=== PATIENT | male | born 1960 | race Caucasian/White ===

== ENCOUNTER 2019-01-30 19:15 | Emergency (ER) | payer BC ==
[2019-01-30] MEDS ORDERED: diphenhydrAMINE 50 MG CAP PO STA (19:37)
[2019-01-30] MEDS ORDERED: SODIUM CHLORIDE 0.9% 1,000 ML IV STA ×2 (19:37→21:13)
[2019-01-30] MEDS ORDERED: ONDANSETRON 4 MG/2 ML VIAL IVP STA (19:37)
[2019-01-30] MEDS ORDERED: DEXAMETHASONE SOD PHOSPHATE 10 MG/ML 1 ML VIAL IV STA (19:37)
[2019-01-30] MEDS ORDERED: FAMOTIDINE 20 MG/2 ML VIAL IV STA (19:37)
--- NOTE | 2019-01-30 19:40 | ED ---
Allergic Reaction HPI - General Chief complaint: Allergic Reaction Stated complaint: Bee sting-allergic reaction Time Seen by Provider: 01/30/19 19:28 Source: patient, RN notes reviewed, old records reviewed Mode of arrival: ambulatory Limitations: no limitations - History of Present Illness Initial Comments: This is a 58-year-old male the ER for evaluation. 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 Patient presents today with bee sting that occurred yesterday he did present to emergency department at that time the bee sting with his left ear and significant left ear pain as well as generalized body itching and not feeling well. No shortness of breath. Patient returns today with recurrent symptoms. Patient states he was also given steroids today he was unable to get them, he did get filled diaphoresis not feeling well. Patient denies shortness of breath, denies feeling of tongue swelling mouth swelling or throat closing. MD Complaint: allergic reaction, other (bee sting) -: days(s) (1) Exposure: insect bite (brr) Symptoms: rash, itching, dizziness, other (Left ear pain) Severity: moderate Treatment Prior to Arrival: benadryl, steroids Previous Allergy History: prior ED visit(s) (EL yesterday) - Related Data Allergies Allergy/AdvReac Type Severity Reaction Status Date / Time bee venom protein (honey bee) Allergy Rash/Hives Verified 01/30/19 19:27 erythromycin base Allergy Unknown Verified 01/30/19 19:27 Review of Systems ROS Statement: Those systems with pertinent positive or pertinent negative responses have been documented in the HPI. ROS Other: All systems not noted in ROS Statement are negative. Past Medical History Past Medical History: No Reported History, Hypertension History of Any Multi-Drug Resistant Organisms: None Reported Past Surgical History: Orthopedic Surgery Past Psychological History: No Psychological Hx Reported Smoking Status: Never smoker Past Alcohol Use History: None Reported, Daily Past Drug Use History: None Reported General Exam Limitations: no limitations General appearance: alert, in no apparent distress Head exam: Present: atraumatic, normocephalic, normal inspection Eye exam: Present: normal appearance, EOMI. Absent: scleral icterus, conjunctival injection, periorbital swelling ENT exam: Present: normal exam, mucous membranes moist, other (Left ear is erythematous, warm) Neck exam: Present: normal inspection. Absent: tenderness, meningismus, lymphadenopathy Respiratory exam: Present: normal lung sounds bilaterally. Absent: respiratory distress, wheezes, rales, rhonchi, stridor Cardiovascular Exam: Present: regular rate, normal rhythm, normal heart sounds. Absent: systolic murmur, diastolic murmur, rubs, gallop, clicks GI/Abdominal exam: Present: soft, normal bowel sounds. Absent: distended, tend erness, guarding, rebound, rigid Extremities exam: Present: normal inspection, full ROM, normal capillary refill. Absent: tenderness, pedal edema, joint swelling, calf tenderness Back exam: Present: normal inspection Neurological exam: Present: alert, oriented X3, CN II-XII intact Psychiatric exam: Present: normal affect, normal mood Skin exam: Present: warm, dry, intact, normal color. Absent: rash Course Vital Signs 01/30/19 19:22 Temperature 98.0 F Pulse Rate 89 Respiratory 16 Rate Blood Pressure 169/90 O2 Sat by Pulse 96 Oximetry - Reevaluation(s) Reevaluation #1: 01/30/19 19:39 Medical records reviewed Reevaluation #2: 01/30/19 19:40 symptoms improved Medical Decision Making - Medical Decision Making 8 male the ER for evaluation presented for evaluation regards to left ear erythema and edema. This improved here in the ER. Patient can be discharged home Disposition Clinical Impression: Allergic reaction, Allergic reaction to insect sting Disposition: HOME SELF-CARE Condition: Good Instructions (If sedation given, give patient instructions): Insect Bite or Sting (ED) Is patient prescribed a controlled substance at d/c from ED?: No Referrals: Nonstaff,Physician [Primary Care Provider] - 1-2 days
[2019-01-30] MEDS ORDERED: PANTOPRAZOLE 40 MG/10 ML VIAL IVP STA (21:13)
[2019-01-30] MEDS ORDERED: MORPHINE SULFATE 4 MG/ML SYRINGE IV STA (21:13)
--- NOTE | 2019-01-30 21:16 | ED ---
Medical Decision Making - Lab Data Result diagrams: 01/30/19 22:08 01/30/19 22:08 - Medical Decision Making 58 male upon discharge begins to complain of many nonspecific symptoms, patient complaining of back pain, headache, nausea. Patient not feeling comfortable for discharge, daughter worried about how her dad is acting. Patient will have further testing. (Jamil De Dios) Patient care was signed out to me by Dr. De Dios. Patient had presented with multiple nonspecific complaints, at the time of sign out CT scans have been ordered. Computed tomography scan resulted with no acute findings. Patient was reevaluated and reported he was feeling much better he still had some discomfort in his left ear due to the bee sting but no other complaints. At this time patient is comfortable with plan for discharge home and outpatient follow-up. (Tara Byrd) - Lab Data Lab Results 01/30/19 01/30/19 01/30/19 Range/Units 22:08 22:08 22:08 WBC 18.6 H (3.8-10.6) k/uL RBC 5.07 (4.30-5.90) m/uL Hgb 17.0 (13.0-17.5) gm/dL Hct 50.4 (39.0-53.0) % MCV 99.4 (80.0-100.0) fL MCH 33.6 (25.0-35.0) pg MCHC 33.8 (31.0-37.0) g/dL RDW 14.4 (11.5-15.5) % Plt Count 192 (150-450) k/uL Neutrophils % 87 % Lymphocytes % 8 % Monocytes % 3 % Eosinophils % 1 % Basophils % 0 % Neutrophils # 16.2 H (1.3-7.7) k/uL Lymphocytes # 1.5 (1.0-4.8) k/uL Monocytes # 0.5 (0-1.0) k/uL Eosinophils # 0.3 (0-0.7) k/uL Basophils # 0.1 (0-0.2) k/uL Sodium 136 L (137-145) mmol/L Potassium 4.6 (3.5-5.1) mmol/L Chloride 106 (98-107) mmol/L Carbon Dioxide 19 L (22-30) mmol/L Anion Gap 11 mmol/L BUN 13 (9-20) mg/dL Creatinine 0.77 (0.66-1.25) mg/dL Est GFR (CKD-EPI)AfAm >90 (>60 ml/min/1.73 sqM) Est GFR (CKD-EPI)NonAf >90 (>60 ml/min/1.73 sqM) Glucose 158 H (74-99) mg/dL Plasma Lactic Acid Shun 2.2 H* (0.7-2.0) mmol/L Calcium 9.3 (8.4-10.2) mg/dL Total Bilirubin 0.6 (0.2-1.3) mg/dL AST 21 (17-59) U/L ALT 18 L (21-72) U/L Alkaline Phosphatase 60 (38-126) U/L Troponin I (0.000-0.034) ng/mL Total Protein 6.9 (6.3-8.2) g/dL Albumin 4.0 (3.5-5.0) g/dL Amylase <30 L (30-110) U/L Lipase 31 (23-300) U/L 01/30/19 Range/Units 22:08 WBC (3.8-10.6) k/uL RBC (4.30-5.90) m/uL Hgb (13.0-17.5) gm/dL Hct (39.0-53.0) % MCV (80.0-100.0) fL MCH (25.0-35.0) pg MCHC (31.0-37.0) g/dL RDW (11.5-15.5) % Plt Count (150-450) k/uL Neutrophils % % Lymphocytes % % Monocytes % % Eosinophils % % Basophils % % Neutrophils # (1.3-7.7) k/uL Lymphocytes # (1.0-4.8) k/uL Monocytes # (0-1.0) k/uL Eosinophils # (0-0.7) k/uL Basophils # (0-0.2) k/uL Sodium (137-145) mmol/L Potassium (3.5-5.1) mmol/L Chloride (98-107) mmol/L Carbon Dioxide (22-30) mmol/L Anion Gap mmol/L BUN (9-20) mg/dL Creatinine (0.66-1.25) mg/dL Est GFR (CKD-EPI)AfAm (>60 ml/min/1.73 sqM) Est GFR (CKD-EPI)NonAf (>60 ml/min/1.73 sqM) Glucose (74-99) mg/dL Plasma Lactic Acid Shun (0.7-2.0) mmol/L Calcium (8.4-10.2) mg/dL Total Bilirubin (0.2-1.3) mg/dL AST (17-59) U/L ALT (21-72) U/L Alkaline Phosphatase (38-126) U/L Troponin I <0.012 (0.000-0.034) ng/mL Total Protein (6.3-8.2) g/dL Albumin (3.5-5.0) g/dL Amylase (30-110) U/L Lipase (23-300) U/L Disposition Is patient prescribed a controlled substance at d/c from ED?: No Clinical Impression: Allergic reaction, Allergic reaction to insect sting Disposition: HOME SELF-CARE Condition: Good Instructions (If sedation given, give patient instructions): Insect Bite or Sting (ED) Referrals: Nonstaff,Physician [Primary Care Provider] - 1-2 days
--- NOTE | 2019-01-30 22:02 | CT ---
EXAMINATION TYPE: CT brain wo con DATE OF EXAM: 01/30/2019 COMPARISON: None HISTORY: Pt allergic to bee venom. Was stung yesterday and c/o headache, backache, neck/ear tingling. CT DLP: 1143.4 mGycm Automated exposure control for dose reduction was used. FINDINGS: Ventricles and sulci appear normal. There is no mass effect nor midline shift. There is no sign of in tracranial hemorrhage. Calvarium is intact. There is minimal mucosal thickening left maxillary sinus. IMPRESSION: NEGATIVE CT SCAN OF THE BRAIN.
--- NOTE | 2019-01-30 22:04 | CT ---
EXAMINATION TYPE: CT angio chest DATE OF EXAM: 01/30/2019 9:56 PM COMPARISON: None HISTORY: Pt allergic to bee venom. Was stung yesterday and c/o headache, backache, neck/ear tingling. CT DLP: 418.6 mGycm Automated exposure control for dose reduction was used. CONTRAST: CTA scan of the thorax is performed with IV Contrast, patient injected with 100 mL of Isovue 370, pul monary embolism protocol. There are 3-D post processed images.. FINDINGS: There is some patchy atelectasis at the lung bases. There is no pulmonary consolidation. There is no mediastinal adenopathy. There are no hilar masses. Thoracic aorta shows no aneurysm or dissection. There is normal contrast opacification of the pulmonary arteries. There are no filling defects. The b maribeth thorax is intact. IMPRESSION: NO EVIDENCE OF PULMONARY EMBOLISM. MINIMAL SUBSEGMENTAL ATELECTASIS.
--- NOTE | 2019-01-30 22:10 | CT ---
EXAMINATION TYPE: CT abdomen pelvis w con DATE OF EXAM: 01/30/2019 COMPARISON: HISTORY: Pt allergic to bee venom. Was stung yesterday and c/o headache, backache, neck/ear tingling. CT DLP: 550.7 mGycm Automated exposure control for dose reduction was used. TECHNIQUE: Helical acquisition of images was performed from the lung bases through the pelvis. CONTRAST: Performed without Oral Contrast and with IV Contrast, patient injected with 100 mL of Isovue 370. FINDINGS: There is subsegmental atelectasis at the lung bases. Heart size is normal. There is no pericardial ef fusion. There is no pleural effusion. Liver spleen stomach pancreas gallbladder appear normal. Bile ducts are not dilated. Kidneys show sat isfactory contrast opacification. There is no hydronephrosis. There is 2 cm cortical cyst anterior le ft kidney. There is mild perinephric fat stranding. There is no adrenal mass. Ureters are not dilated . Bladder distends smoothly. The prostate is large. There is no inguinal hernia. There is no free flu id in the pelvis. There is mild bilateral perinephric edema. There is no mesenteric edema. There is no ascites or free air. There is no sign of a bowel obstructio n. Appendix is not definitely seen. There is no sign of thickened appendix. There is narrowing at L5- S1 disc space. Lumbar vertebra appear intact. Bony pelvis is intact. IMPRESSION: SUBSEGMENTAL ATELECTASIS AT THE LUNG BASES. There is mild bilateral perinephric edema. Clinical significance is not clear. No renal obstruction.
[2019-01-30 22:19] LABS: Basophils # (A) 0.1 k/uL (0-0.2); Basophils % (A) 0 %; Eosinophils # (A) 0.3 k/uL (0-0.7); Eosinophils % (A) 1 %; HCT 50.4 % (39.0-53.0); Lymphocytes # (A) 1.5 k/uL (1.0-4.8); Lymphocytes % (A) 8 %; MCH 33.6 pg (25.0-35.0); MCHC 33.8 g/dL (31.0-37.0); MCV 99.4 fL (80.0-100.0); Mean Platelet Volume 7.8; Monocytes # (A) 0.5 k/uL (0-1.0); Monocytes % (A) 3 %; Neutrophils # (A) 16.2 k/uL (1.3-7.7); Neutrophils % (A) 87 %; Platelet Count 192 k/uL (150-450); RBC 5.07 m/uL (4.30-5.90); RDW 14.4 % (11.5-15.5); WBC 18.6 k/uL (3.8-10.6)
[2019-01-30] MEDS: DIAZEPAM 5 MG/ML 2 ML INJ IVP STA ×2 (22:19→23:00)
[2019-01-30 22:37] LABS: ALT 18 U/L (21-72); AST 21 U/L (17-59); African American GFR (CKD) >90 (>60 ml/min/1.73 sqM); Alkaline Phosphatase 60 U/L (38-126); Anion Gap 11 mmol/L; Blood Urea Nitrogen 13 mg/dL (9-20); Calcium 9.3 mg/dL (8.4-10.2); Carbon Dioxide 19 mmol/L (22-30); Chloride 106 mmol/L (98-107); Glucose 158 mg/dL (74-99); Potassium 4.6 mmol/L (3.5-5.1); Sodium 136 mmol/L (137-145); Total Bilirubin 0.6 mg/dL (0.2-1.3); Total Protein 6.9 g/dL (6.3-8.2)
[2019-01-30 22:41] LABS: Amylase <30 U/L (30-110)
[2019-01-30] MEDS ORDERED: DIAZEPAM 5 MG/ML 2 ML INJ IVP STA (22:47)
[2019-01-31 00:27] VITALS: BP 133/89; PULSE 85; RESP 18
[2019-01-31 00:37] VITALS: TEMP 97.3
== END 2019-01-31 00:38 | disposition home or self-care (01) ==
LOC: EC 19:15 → SUPCPDRO 19:15 → EC 01-31 00:38
DX: T63.441A Toxic effect of venom of bees, accidental (unintentional), initial encounter (principal); M54.9 Dorsalgia, unspecified; R51 Headache; Z91.048 Other nonmedicinal substance allergy status; Z88.1 Allergy status to other antibiotic agents; Z53.8 Procedure and treatment not carried out for other reasons
CPT/HCPCS: 36415; 80053; 82150; 83605; 83690; 84484; 85025; 70450; 71275; 74177; 99284; 96374; 96375 ×5; 96361 ×2; J2270; J1100; J3360; J2405; C9113; Q9967; 96360